=== PATIENT | female | born 1985 | race Caucasian/White ===

== ENCOUNTER 2020-04-14 12:56 | Emergency (ER) | payer SELFPAY ==
[~2020-04-14] VITALS: Ht 157.5 cm; Wt 80.2 kg
[2020-04-14 13:51] VITALS: BP 133/94
[2020-04-14] MEDS ORDERED: ONDANSETRON HCL 4MG/2ML INJ IV STA (14:49)
[2020-04-14] MEDS ORDERED: FAMOTIDINE 20MG/2ML VIAL IV STA (14:49)
[2020-04-14] MEDS ORDERED: SODIUM CHLORIDE 0.9% 1,000 ML IV ONE (15:00)
== END 2020-04-14 15:38 | disposition left against medical advice (07) ==
LOC: ER 12:56
DX: R10.13 Epigastric pain (principal); R11.2 Nausea with vomiting, unspecified; Z90.710 Acquired absence of both cervix and uterus; Z88.8 Allergy status to other drugs, medicaments and biological substances; Z88.6 Allergy status to analgesic agent
CPT/HCPCS: 93005; 99283